=== PATIENT | male | born 1960 | race Caucasian/White ===

== ENCOUNTER → 2024-04-27 | Outpatient (CLI) | payer BC ==
[2024-04-27 10:41] LABS: Partial Thromboplastin Time 22.5 sec (22.0-30.0); Prothrombin Time 11.2 sec (10.0-12.5)
[2024-04-27 15:20] LABS: HCT 43.9 % (39.6-50.0); HGB 14.5 g/dL (13.0-17.0); MCH 31.5 pg (27.0-32.0); MCV 95.4 FL (80.0-97.0); NRBC Per 100 WBC 0 X 10*3/uL (0.00-0.01); Platelet Count 204 X 10*3/uL (140-440); RDW 12.5 % (11.5-14.5); WBC 4.91 X 10*3/uL (4.50-10.00)
[2024-04-27 15:39] LABS: ALT 30 U/L (10-49); AST 27 U/L (14-35); Albumin 4.6 g/dL (3.8-4.9); Albumin/Globulin Ratio 1.77 Ratio (1.60-3.17); Alkaline Phosphatase 103 U/L (41-126); BUN/Creat Ratio 13.38 Ratio (12.00-20.00); Blood Urea Nitrogen 10.7 mg/dL (9.0-27.0); Calcium 9.8 mg/dL (8.7-10.3); Carbon Dioxide 24.6 mmol/L (21.6-31.8); Chloride 103 mmol/L (96-109); Globulin 2.6 g/dL (1.6-3.3); Glucose 98 mg/dL (70-110); Potassium 4.7 mmol/L (3.5-5.5); Sodium 140 mmol/L (135-145); Total Bilirubin 0.7 mg/dL (0.3-1.2); Total Protein 7.2 g/dL (6.2-8.2)
== END | disposition home or self-care (01) ==
LOC: LABPAT 09:46
PROVIDERS: ATTEND Orthopaedic Surgery
DX: Z01.812 Encounter for preprocedural laboratory examination (principal); M16.12 Unilateral primary osteoarthritis, left hip; Z22.322 Carrier or suspected carrier of Methicillin resistant Staphylococcus aureus; E11.9 Type 2 diabetes mellitus without complications
CPT/HCPCS: 36415; 80053; 83036; 85027; 85610; 85730; 86850; 86900; 86901; 87070

== ENCOUNTER 2024-05-04 11:12 | Day surgery (SDC) | payer BC ==
[~2024-05-04 11:12] MED LIST: HYDROmorphone 0.5 MG/0.5 ML SYRINGE IVP PRN; LIDOCAINE 1% (10MG/ML) FOR IV START INTRADERMA PRN; TRANEXAMIC 1,000 MG/100ML-NACL 1,000 MG in SALINE 1 100ML.BAG IV PRN; TRANEXAMIC 1,000 MG/100ML-NACL 1,000 MG in SALINE 1 100ML.BAG IVPB PRN
[2024-05-04] MEDS: IV FLUID CONTINUATION 1,000 ML IV ONE (11:45)
[2024-05-04] MEDS: ACETAMINOPHEN TAB 500 MG TAB PO PRN (12:02)
[2024-05-04] MEDS: DOCUSATE 100 MG CAP PO PRN (12:04)
[2024-05-04] MEDS: DEXAMETHASONE SOD PHOSPHATE 10 MG/ML 1 ML VIAL IV PRN (12:04)
[2024-05-04] MEDS: ONDANSETRON 4 MG/2 ML VIAL IVP PRN (12:04)
[2024-05-04] MEDS: oxyCODONE ER 10 MG TAB.ER.12H PO PRN (12:04)
[2024-05-04] MEDS: FAMOTIDINE 20 MG/2 ML VIAL IVP PRN (12:04)
[2024-05-04] MEDS: KETOROLAC 15 MG/ML 1 ML VIAL IVP PRN (12:05)
[2024-05-04] MEDS: MIDAZOLAM 2 MG/2 ML VIAL IVP ONE (12:25)
[2024-05-04] MEDS: fentaNYL (PF) 50 MCG/ML 2 ML AMP IVP ONE (12:25)
[2024-05-04] MEDS: ROPIVACAINE/EPI/CLONIDINE/KET 50 ML SYRINGE MISCELLANE PRN (13:46)
[2024-05-04] MEDS: LACTATED RINGERS 1,000 ML IV ONE (14:05)
--- NOTE | 2024-05-04 14:50 | P.OP ---
Date of Procedure: 05/04/24 Preoperative Diagnosis: Left hip osteoarthritis, possible AVN Postoperative Diagnosis: same Procedure(s) Performed: left direct anterior total hip arthroplasty Implants: 1. [place] Trident II Acetabular Cup, Size #58 2. Rachid Insignia Size #6 Femoral Stem, High Offset 3. Biolox delta femoral head, 36 mm, - 5 mm neck Anesthesia: GETA, regional Surgeon: Saji Hameed Tag Writer #1: Brian Dickinson Estimated Blood Loss (ml): 200 IV fluids (ml): 800 Pathology: none sent Condition: stable Disposition: PACU Indications for Procedure: I had a long discussion with the patient in the office on the potential risks and complications of an elective total hip replacement through a direct anterior approach. Risks discussed include, but are certainly not limited to, risks from anesthesia, superficial infection requiring local wound care or antibiotics, deep pinky-prosthetic joint infection and the treatment required to eradicate infection, intraoperative fracture, postoperative periprosthetic fracture, damage to local blood vessels or nerves particularly the lateral femoral cutaneous nerve, delayed wound healing requiring local wound care or possibly surgical debridement, hip dislocation, leg length discrepancy, soft tissue irritation around the total hip implant such as iliopsoas tendinitis or trochanteric bursitis, wear and osteolysis from the implants, squeaking or audible noises, groin pain, thigh pain, heterotopic ossification, stiffness, aseptic loosening of the implants, dissatisfaction with surgical outcome, need for revision surgery, DVT, PE, swelling of the operative extremity, acute coronary event, stroke, failure to thrive, and possibly loss of life or limb. The patient understands that while these are the most common complications after an elective hip replacement there are certainly other less common complications possible. They were given ample time to ask questions regarding the potential complications of a hip replacement. Following our discussion the patient provided their verbal and written consent to go forward with an elective total hip replacement. Operative Findings: severe degenerative changes left hip with partial collapse of the femoral head Description of Procedure: The patient was identified in the preoperative holding area and the correct hip was marked with my initials. I reviewed the procedure and consent with the patient. All of their questions were answered. The patient was then brought back into the operating room by anesthesia. While on the [facility] anesthesia was administered by the anesthesia team. Preoperative antibiotics and tranexamic acid were also given. After the patient was under anesthesia I examined their ankles to determine their preoperative leg length discrepancy. The skin over the anterior aspect of the hip was shaved to remove hair over the site of planned incision. Both feet and ankles were padded with webril and boots for the [place] were applied. The patient was then carefully transferred onto the [place] table. A perineal post was immediately placed. The arms were placed on arm holders and were well-padded. Both boots were secured to the spars on the [place] table. The patient was positioned so that the pelvis was centered over the post. Nonsterile drapes were applied. A timeout was performed identifying the correct patient, operative extremity, and procedure. At this point fluoroscopy was brought in to take preoperative images of the pelvis and operative hip. Using the standing AP pelvis from the office as a template, a comparable image was obtained with fluoroscopy. A metallic bar was used to create a bi-ischial line for use as a reference to leg length adjustments during the procedure. Global offset was also measured on both the operative and nonoperative leg. Fluoroscopy was then brought out and a pre-scrub using a chlorhexidine scrub brush was performed. The operative limb was then prepped and draped in the standard sterile fashion. An anterior longitudinal incision was made lateral and distal to the ASIS. The skin and subcutaneous tissues were incised sharply. The underlying tensor fascia was identified and incised in its midportion. The fascia was dissected free from the underlying muscle and the muscle belly was retracted. A blunt tipped cobra retractor was placed over the superior neck under the muscle fibers of the gluteus minimus. The deep enveloping fascia of the tensor was incised. The anterior leash of vessels were then identified and cauterized. The fascia between the rectus and the capsule was then incised and the pre-capsular fat was excised. A second Cobra was placed inferior to the neck. The interval between the rectus and iliocapsularis and the hip capsule was developed and a retractor was placed carefully over the anterior rim of the acetabulum. A T-shaped anterior capsulotomy was performed. The superior capsular leaflet was left in place in the inferior capsular flap was excised. The Cobra retractors were placed intracapsularly. We then made a femoral neck osteotomy according to preoperative and intraoperative templating and confirmed the level of the osteotomy using fluoroscopic imaging. The femoral head was removed, passed off to the back table, and sized. The superior capsular flap was excised. Retractors were placed circumferentially exposing the acetabulum. We then circumferentially debrided the acetabulum free of labrum and osteophytes. The pulvinar was removed to fully visualize the cotyloid fossa. We then sequentially reamed to achieve peripheral fit and excellent bleeding subchondral bone. The socket was thoroughly irrigated. The acetabular component was impacted into the appropriate position using fluoroscopy to guide version, inc lination, and depth of insertion taking care to have a comparable image of the AP pelvis to the standing image taken in the office. An excellent press-fit was achieved and final position was confirmed using fluoroscopy. The press fit was augmented with bony cancellus dome screws. The liner was then impacted into the socket. Attention was then turned to the femur. The remnant dorsal lateral capsule was excised. The short external rotators were visible and protected. A bone hook was used to confirm appropriate translation of the trochanter away from the acetabulum. The leg was then extended and adducted and the bone hook was used to elevate the femur for broaching. A box osteotome and blunt tipped canal sound was then utilized to gain access to the femoral canal. We then sequential ly broached the femur in appropriate anteversion until excellent torsional stability was achieved. The neck cut was brought flush to the trial broach with a calcar planar. A trial neck and head were then placed onto the broach and the hip was atraumatically reduced under direct visualization. External rotation to 90 was performed to assess stability. Fluoroscopy was brought in. An AP and lateral fluoroscopic image of the proximal femur was obtained to assess position and fill of the trial broach. An AP of the pelvis was then obtained and matched to the preoperative image taken. A bi-ischial bar was then placed and measurements were taken to assess changes in length and offset. The hip was then carefully dislocated, the proximal femur was exposed, and the trial implants were removed. The wound and proximal femur was thoroughly irrigated using sterile saline and pulsatile lavage. The final femoral implant was dispensed and gently tapped into place generating an excellent press-fit. The trunnion was cleansed and the final head was tapped into place to engage the Eddy taper. The acetabulum was irrigated and visualized to be free of debris. The hip was carefully reduced. Stability was checked clinically with external rotation to 90 and there was no evidence of instability. Final fluoroscopic images were taken. The wound was then thoroughly irrigated and soaked with a dilute Betadine rinse for 3 minutes. 3 L of sterile saline was irrigated through the wound using pulsatile lavage. Local anesthetic cocktail was injected into the soft tissues around the surgical field. The wound was then closed in layers. A sterile dressing was placed over the surgical incision. The drapes were taken down and the patient was carefully transferred off of the [place] table. Following removal of the boots the leg lengths felt acceptable. The patient was then taken to recovery room having tolerated the procedure well. Brian Dickinson PA-C was required as a skilled research lab assistant due to the complexity of surgery for patient positioning, draping, exposure, retraction, closure of wound and application of dressing. PLAN: The patient can weight-bear as tolerated on the operative extremity. DVT prophylaxis with aspirin 81 mg twice a day based on preoperative risk stratification. Physical therapy for gait training. Leave surgical dressing in place. Internal medicine for perioperative medical management.
[2024-05-04] MEDS ORDERED: NALOXONE 0.4 MG/ML 1 ML VIAL IV PRN (14:51)
[2024-05-04] MEDS ORDERED: MAGNESIUM HYDROXIDE 2,400 MG/30 ML CUP PO PRN (14:51)
[2024-05-04] MEDS ORDERED: HYDROmorphone 0.5 MG/0.5 ML SYRINGE IVP PRN (14:51)
[2024-05-04] MEDS ORDERED: HYDROmorphone 1 MG/ML 1 ML SYRINGE IVP PRN (14:51)
[2024-05-04] MEDS ORDERED: HYDROcodone/APAP 5-325MG 1 EACH TAB PO PRN (14:51)
--- NOTE | 2024-05-04 15:05 | XR ---
Fluoroscopy History: LEFT ANTERIOR HIP Left total anterior hip 30 sec fl 1.0300 DAP
--- NOTE | 2024-05-04 16:04 | FL ---
EXAMINATION TYPE: FL guidance operating room DATE OF EXAM: 05/04/2024 Comparison: None Clinical History: 63-year-old male LEFT ANTERIOR HIP Findings: Left total anterior hip 30 sec fl 1.0300 Gycm2 DAP 6 images document procedure. Impression: Intraoperative fluoroscopy as above.
--- NOTE | 2024-05-04 16:20 | P.ANPRN ---
Procedure Note - Anesthesia - Nerve Block Performed Left Ramez Single Time Out Performed: Yes (1225) Date of Procedure: 05/04/24 Procedure Start Time: Procedure Stop Time: Location of Patient: PreOp Indication: Acute Post-Operative Pain, Requested by Surgeon Specifically requested for management of pain by DrJose Luis: Saji Hameed Sedation Type: Sedate with meaningful contact maintained Preparation: Sterile Prep Position: Supine Catheter: None Needle Types: Pajunk Needle Gauge: 21 Ultrasound used to visualize needle placement: Yes Ultrasound used to observe medication spread: Yes Injectate: 0.5% Ropivacaine (see comment for volume) (30cc) Blood Aspirated: No Pain Paresthesia on Injection Noted: No Resistance on Injection: Normal Image Stored and Saved: Yes Events: Uneventful and Well Tolerated
[2024-05-04] MEDS: LACTATED RINGERS 1,000 ML IV SCH (16:37)
[2024-05-04] MEDS ORDERED: Acetaminophen-Codeine 300-30mg TAB PO PRN (16:51)
[2024-05-04] MEDS: SODIUM CHLORIDE 0.9% 1,000 ML IV SCH (17:19)
[2024-05-04] MEDS: ASPIRIN 81 MG PO SCH (20:45)
[2024-05-04] MEDS: SENNOSIDES-DOCUSATE SODIUM 1 EACH TAB PO SCH (20:45)
--- NOTE | 2024-05-04 21:04 | CONS ---
CONSULTATION REASON FOR CONSULTATION: Advice regarding hyperlipidemia, other medical issues, requested by Orthopedic Surgery. HISTORY OF PRESENT ILLNESS: This is a 63-year-old gentleman with a past medical history of hyperlipidemia, history of CAD stent, underwent left hip joint arthroplasty for DJD and possible avascular necrosis. There is no history of any fever or rigors. No history of headache, loss of consciousness, or seizures at this time. PAST MEDICAL HISTORY: History of hyperlipidemia, history of left hip pain, CAD stent. Rest of the history and rest of the chart is also reviewed. HOME MEDICATIONS: Reviewed, Ultram. Doses and rest of medications reviewed. ALLERGIES: None. FAMILY HISTORY: History of CAD in family. SOCIAL HISTORY: Previous history of smoking. REVIEW OF SYSTEMS: Fourteen-point review is negative except as mentioned earlier. PHYSICAL EXAMINATION: VITAL SIGNS: Pulse 77, blood pressure 110/59, respirations 16. HEENT: Conjunctivae normal. NECK: No JVD. CARDIOVASCULAR: S1, S2. RESPIRATIONS: Breath sounds diminished at the bases. No rhonchi. No crackles. ABDOMEN: Soft, nontender. LEGS: Status post arthroplasty. NERVOUS SYSTEM: Nonfocal. SKIN: No ulcer, rash, bleeding. JOINTS: No active deforming arthropathy. LABORATORY DATA: Noted. ASSESSMENT: 1. Status post left hip arthroplasty. 2. Hyperlipidemia. 3. Possible avascular necrosis. 4. History of coronary artery disease stent. 5. Remote history of nicotine dependence. RECOMMENDATIONS AND DISCUSSION: This is a 63-year-old gentleman, who presented after surgery. At this time, I recommend to continue current medications. Resume the home medications, antiplatelet agents. Otherwise, DVT prophylaxis, incentive spirometry. We will follow the patient closely. The patient may be asked to follow up with Primary Physician closely after discharge. MMODL / IJN: [id number] /
[2024-05-05] MEDS: HYDROcodone/APAP 10-325MG 1 EACH TAB PO PRN (02:50)
[2024-05-05 07:52] VITALS: BP 112/67; PULSE 80; RESP 16; TEMP 98.2
[2024-05-05] MEDS: MULTIVITAMINS, THERA 1 EACH TAB PO SCH (08:02)
[2024-05-05] MEDS: ATORVASTATIN 80 MG TAB PO SCH (08:02)
[2024-05-05] MEDS: METOPROLOL SUCCINATE (ER) 50 MG TAB.ER.24H PO SCH (08:02)
--- NOTE | 2024-05-05 08:39 | P.DS ---
Providers Date of admission: 05/04/2024 Attending physician: Saji Hameed Consults: 05/04/24 14:51 Consult Physician Routine Consulting Provider: Sulema Weaver Consult Reason/Comments: post op medical management Do you want consulting provider notified?: Yes Primary care physician: [facility] Course: Patient is a 63-year-old male who presented to the hospital with left hip osteoarthritis and underwent left total hip arthroplasty on 05/04/2024. After postop he was transferred to the floor under our care. Patient did well overnight with no acute events. Patient has been up out of bed and walked to the bathroom with walker. Patient stated their left hip pain has improved compared to before surgery. On postop day #1 the patient was evaluated at bedside. No apparent distress. They were alert and able answer questions. On inspection the left hip dressing is intact. There is no drainage or strikethrough. The skin surrounding the dressing is free of erythema. There is mild swelling in the left thigh. Femoral nerve function is intact. The patient is able to actively plantarflex and dorsiflex the ankle and toes. Assessment: Postoperative day 1 status post left total hip arthroplasty for osteoarthritis. Plan - Discharge Summary Discharge Rx Participant: Yes New Discharge Prescriptions: New Aspirin 81 mg PO BID #60 tab HYDROcodone/APAP 5-325MG [[place] 5-325] 1 - 2 tab PO Q6HR PRN #32 tab PRN Reason: Pain Docusate [Colace] 100 mg PO BID #60 capsule Omeprazole 40 mg PO DAILY #30 cap Diclofenac Sodium [Voltaren] 75 mg PO BID #60 tab No Action Aspirin 81 mg PO DAILY traMADol HCl [Ultram] 50 mg PO DIRECTED PRN PRN Reason: Pain Atorvastatin Calcium [Lipitor] 80 mg PO DAILY Metoprolol Succinate (ER) [Toprol Xl] 50 mg PO DAILY Acetaminophen-Codeine 300-30mg [Tylenol w/codeine #3] 1 tab PO DIRECTED VA N PRN Reason: Pain Discharge Medication List Acetaminophen-Codeine 300-30mg [Tylenol w/codeine #3] 1 tab PO DIRECTED PRN 04/29/24 [History] Aspirin 81 mg PO DAILY 04/29/24 [History] Atorvastatin Calcium [Lipitor] 80 mg PO DAILY 04/29/24 [History] Metoprolol Succinate (ER) [Toprol Xl] 50 mg PO DAILY 04/29/24 [History] traMADol HCl [Ultram] 50 mg PO DIRECTED PRN 04/29/24 [History] Aspirin 81 mg PO BID #60 tab 05/04/24 [Rx] Diclofenac Sodium [Voltaren] 75 mg PO BID #60 tab 05/04/24 [Rx] Docusate [Colace] 100 mg PO BID #60 capsule 05/04/24 [Rx] HYDROcodone/APAP 5-325MG [[place] 5-325] 1 - 2 tab PO Q6HR PRN #32 tab 05/04/24 [Rx] Omeprazole 40 mg PO DAILY #30 cap 05/04/24 [Rx] Follow up Appointment(s)/Referral(s): Saji Hameed MD [Medical Doctor] - 2 Weeks Activity/Diet/Wound Care/Special Instructions: 1. Weight-bear as tolerated on your operative extremity unless instructed otherwise. Use a walker or other assistive device to ambulate. 2. Leave surgical dressing in place. If your dressing becomes saturated with blood, there is drainage, or the dressing becomes loose please contact the off ice. 3. It is okay to shower with your surgical dressing, but do not submerge in water (no hot tubs, bath's, swimming etc.) 4. Take your blood clot prevention medication as prescribed (aspirin, Eliquis, Xarelto, and Plavix are commonly prescribed medications for blood clot prevention) 5. While taking [place] or Percocet for pain take a stool softener (Ex: Colace) and drink lots of water. 6. Keep all follow-up appointments as scheduled. You will usually be seen in 1-2 weeks following surgery. 7. Please contact the office with any questions or concerns [phone] Discharge Disposition: HOME WITH HOME HEALTH SERVICES
[2024-05-05 08:49] LABS: Basophils # (A) 0.01 X 10*3/uL (0.00-0.10); Basophils % (A) 0.1 %; Eosinophils # (A) 0 X 10*3/uL (0.04-0.35); Eosinophils % (A) 0 %; HCT 30.8 % (39.6-50.0); HGB 10.3 g/dL (13.0-17.0); Lymphocytes # (A) 0.79 X 10*3/uL (0.90-5.00); Lymphocytes % (A) 6.1 %; MCH 31.6 pg (27.0-32.0); MCHC 33.4 g/dL (32.0-37.0); MCV 94.5 FL (80.0-97.0); Mean Platelet Volume 10.6 FL (9.5-12.2); Monocytes # (A) 0.62 X 10*3/uL (0.20-1.00); Monocytes % (A) 4.8 %; NRBC Per 100 WBC 0 X 10*3/uL (0.00-0.01); Neutrophils # (A) 11.48 X 10*3/uL (1.80-7.70); Neutrophils % (A) 88.4 %; Platelet Count 170 X 10*3/uL (140-440); RBC 3.26 X 10*6/uL (4.40-5.60); RDW 12.7 % (11.5-14.5); WBC 12.98 X 10*3/uL (4.50-10.00)
--- NOTE | 2024-05-05 23:16 | PN ---
PROGRESS NOTE DATE OF SERVICE: 05/05/2024 SUBJECTIVE: This is a 63-year-old gentleman with a past medical history of multiple medical problems, was admitted after hip arthroplasty. The patient is improving significantly. No chest pain, no palpitation. OBJECTIVE: VITAL SIGNS: Pulse is 80, blood pressure 112/67, respirations 16. CHEST: Clear to auscultation. CARDIOVASCULAR: S1, S2. ABDOMEN: Soft. LEGS: Status post arthroplasty. LABS: WBC 12.98. ASSESSMENT: 1. Status post left hip arthroplasty. 2. Hyperlipidemia. 3. Possible avascular necrosis. 4. History of CAD stent. 5. Remote history of nicotine dependence. RECOMMENDATIONS AND DISCUSSION: I recommended to continue current management, continue symptomatic treatment otherwise. Follow with primary physician closely after discharge. DVT prophylaxis. Rest of the recommendations per Orthopedic surgery. MMODL / IJN: [id number] /
== END 2024-05-05 12:22 | disposition home health service (06) ==
LOC: OR 11:12 → 4SSUR 15:03 → OR 05-05 12:22
PROVIDERS: ATTEND Orthopaedic Surgery
DX: M16.12 Unilateral primary osteoarthritis, left hip (principal); G89.18 Other acute postprocedural pain; I25.10 Atherosclerotic heart disease of native coronary artery without angina pectoris; E78.00 Pure hypercholesterolemia, unspecified; I11.9 Hypertensive heart disease without heart failure; I48.91 Unspecified atrial fibrillation; K21.9 Gastro-esophageal reflux disease without esophagitis; Z95.5 Presence of coronary angioplasty implant and graft; Z87.891 Personal history of nicotine dependence; Z79.82 Long term (current) use of aspirin; Z79.899 Other long term (current) drug therapy; Z79.01 Long term (current) use of anticoagulants; Z79.1 Long term (current) use of non-steroidal anti-inflammatories (NSAID)
CPT/HCPCS: 97161; 64447; 85025; 73501; 27130; C1776; J2250; J1100; J0690 ×2; J2405; J3010; J3490; J1885